=== PATIENT | female | born 1985 | race Caucasian/White ===

== ENCOUNTER 2023-01-16 15:51 | Emergency (ER) | payer OTHER ==
[~2023-01-16] VITALS: Ht 165.1 cm; Wt 81.6 kg
[2023-01-16] MEDS ORDERED: ACETAMINOPHEN/CODEINE#3 (300/30mg) TAB PO ONE (16:15)
[2023-01-16 18:00] VITALS: BP 123/78
[2023-01-16 18:01] VITALS: PULSE 93; RESP 20; O2SAT 98
[2023-01-16] MEDS ORDERED: TRAM50TA2 PO (18:33)
== END 2023-01-16 18:34 | disposition home or self-care (01) ==
LOC: EDSEX 15:51 → EDBD 15:51 → ER 15:51
DX: M25.561 Pain in right knee (principal)